=== PATIENT | male | born 2000 | race Caucasian/White ===

== ENCOUNTER 2020-12-22 09:18 | Emergency (ER) | payer OTHER ==
[~2020-12-22] VITALS: Ht 177.8 cm; Wt 75.0 kg
[2020-12-22] MEDS ORDERED: ACET-683 PO (09:31)
--- NOTE | 2020-12-22 10:12 | REP ---
INDICATION: trauma, left parietal, headache COMPARISON: None. TECHNIQUE: Axial noncontrast images from the skull base to the vertex with coronal reformations. This CT examination was performed using the following dose reduction techniques: Automated exposure control, adjustment of mA and/or kv according to the patient's size, and use of iterative reconstruction technique. FINDINGS: The ventricles, sulci, and cisterns are normal in position and appearance. Parr-white differentiation is maintained. No acute intracranial hemorrhage, mass/mass effect, pathology or trauma/injury. No evidence for acute infarction. No extra-axial fluid collection. Calvarium is intact. Paranasal sinuses and mastoid air cells are clear. IMPRESSION: Normal noncontrast head CT. No evidence for acute intracranial pathology or trauma/injury. <Electronically signed by Randal Boogie > 12/22/20 [id number]
[2020-12-22] MEDS ORDERED: IBUP-1022 PO (10:25)
[2020-12-22] MEDS ORDERED: ONDA4TAB6 PO (10:25)
[2020-12-22 10:37] VITALS: BP 139/86
== END 2020-12-22 10:39 | disposition home or self-care (01) ==
LOC: EDBD 09:18 → M ED 09:18
DX: S06.0X0A Concussion without loss of consciousness, initial encounter (principal); V43.52XA Car driver injured in collision with other type car in traffic accident, initial encounter; Y92.9 Unspecified place or not applicable; Y93.9 Activity, unspecified; Y99.9 Unspecified external cause status